=== PATIENT | female | born 1995 | race Caucasian/White ===

== ENCOUNTER 2024-05-18 04:07 | Emergency (ER) | payer MEDICAID, OTHER ==
[2024-05-18 05:40] LABS: HIV 1/2 AB P24AG Negative (Negative)
[2024-05-18 05:41] LABS: HEPATITIS B SURFACE ANTIGEN NEGATIVE (Negative)
[2024-05-18 15:40] LABS: HEPATITIS C VIR.AB 0.05 INDEXVAL (0.00-0.80)
[2024-05-18 15:44] LABS: HEPATITIS B SURFACE ANTIGEN NEGATIVE
== END 2024-05-18 05:00 | disposition home or self-care (01) ==
LOC: ER 04:07
DX: S61.032A Puncture wound without foreign body of left thumb without damage to nail, initial encounter (principal); W46.0XXA Contact with hypodermic needle, initial encounter; Y93.89 Activity, other specified; Y92.89 Other specified places as the place of occurrence of the external cause; Y99.8 Other external cause status
CPT/HCPCS: 36415; 87340; 99283